=== PATIENT | female | born 1965 | race Caucasian/White ===

== ENCOUNTER 2021-05-11 13:44 | Emergency (ER) | payer BC, SELFPAY ==
--- NOTE | 2021-05-11 13:58 | PC.NURSE ---
[id number]-- registration called name and no response from the waiting room, so pt left without being seen, and chart made from information that was existing in the computer already. pt lwbs.
== END 2021-05-11 13:58 | disposition left against medical advice (07) ==
LOC: EXPCOLL 13:47
DX: Z53.21 Procedure and treatment not carried out due to patient leaving prior to being seen by health care provider (principal)
CPT/HCPCS: 99199

== ENCOUNTER → 2022-07-06 12:06 | Outpatient (CLI) | payer BC, SELFPAY ==
--- NOTE | ~2022-07-06 | XR_ITS ---
Right Hand Technique: PA, oblique, and lateral views were obtained. Clinical History: Osteoarthritis Findings: No acute fracture or dislocation is seen. There is severe osteoarthritis of the fifth PIP j oint, and the fourth and fifth DIP joints. There is mild to moderate degenerative change at the secon d DIP joint. There is probable additional degenerative change at the STT reticulations. Remaining bull nt spaces are intact.. Soft tissues are unremarkable. Impression: Degenerative changes, predominantly involving the interphalangeal joints of the second, fourth, and f ifth digit, as detailed above. Reviewed, dictated and finalized at location M. [facility]PER[facility] Impression: Degenerative changes, predominantly involving the interphalangeal joints of the second, fourth, and fifth digit, as detailed above.
== END ==
PROVIDERS: PCP Family Medicine; Visit Provider Family Medicine
DX: M19.90 Unspecified osteoarthritis, unspecified site (principal)
CPT/HCPCS: 73130

== ENCOUNTER 2022-07-07 01:23 | Day surgery (SDC) | payer BC, SELFPAY ==
[2022-06-27 12:16] VITALS: BMI 31.4
--- NOTE | 2022-07-06 14:20 | PM.HPGS ---
History of Present Illness History of Present Illness Consent: Risks, benefits, and alternatives have been discussed and questions answered. Patient agrees to proceed with procedure. Chief complaint: family hx colon ca, neoplasm screening Narrative: Dorie Cantu (Libby) is a 57 year old female Referred for colon cancer screening. Her father had colon cancer. she had an unremarkable colonoscopy in 2010 Review of Systems Review of Systems: All systems reviewed & are unremarkable except as noted in HPI and below PMFSH Past Medical History Medical History Body mass index [BMI] 30.0-30.9, adult (06/06/17) Breast screening Dietary counseling and surveillance (06/06/17) Mixed hyperlipidemia Vitamin D deficiency Family History Family History Father Carcinoma of colon, Onset Age: 67 Mother Family history of lung cancer, Onset Age: 62 Patient's mother is Social History Social History Social History: Single Smoking status: Never smoker Second hand tobacco smoke exposure: No Alcohol intake: current Drinks per week: 3 Alcohol use details: Occasionally Substance use: never Substance use type: does not use Last use: Sleep aide vape Lack of Transportation: No Lack of Food: Never True Current Housing: I Have Housing Concerned About Future Housing: No Difficulty Paying Gas/Electric Bills: No Difficulty Paying for Meds: No Currently Unemployed: No Education: Don't Know Difficulty w/ Childcare or Family Care: No Living arrangements: with family Occupation/Education: occupation Gender identity (if verbalized by the patient): Female Sexual Orientation (if Verbalized by the Patient): Straight or Heterosexual Spiritual care concerns: No Meds Home Medications and Allergies Home Medications Medication Instructions Recorded Confirmed Type celecoxib 200 mg capsule (Celebrex) 200 mg PO BID #60 caps 07/06/22 07/06/22 Rx Allergies Allergy/AdvReac Type Severity Reaction Status Date / Time No Known Allergies Allergy Verified 07/07/22 07:39 Exam Resp: Auscultation: clear to auscultation bilaterally Cardio: Rate: regular rate Rhythm: regular rhythm GI: GI Palp: Yes Soft to palpation and No Tenderness to palpation present (GI) Assessment and Plan Assessment and plan (1) Colon cancer screening: Code(s): Z12.11 - Encounter for screening for malignant neoplasm of colon Status: Acute Assessment and Plan: Colonoscopy with possible biopsy or polypectomy or cautery or injection of substances.
[2022-07-07 07:41] VITALS: BP 122/73; PULSE 74; RESP 18; TEMP 36.2; O2SAT 100
[2022-07-07] MEDS: LACTATED RINGERS 1,000 ML 150 ML IV CONT (07:49)
--- NOTE | 2022-07-07 08:08 | P.PNAN_ITS ---
Anes - Initial Pre Proc Eval Procedure: Operation Date: 07/07/22 08:30 Proposed Procedures p Screening Colonoscopy - Flako Manuel MD Date/Time: 07/07/22 08:08 Surgeon: Flako Manuel MD Pre Op Diagnosis: family hx colon ca, neoplasm screening Patient Data Age: 57 Gender: F Height: 1.68 m Weight: 92.4 kg Last Vital Signs Temp 97.2 F L 07/07/22 07:41 Pulse 74 07/07/22 07:41 Resp 18 07/07/22 07:41 BP 122/73 07/07/22 07:41 Pulse Ox 100 07/07/22 07:41 O2 Del Method Room Air 07/07/22 07:41 Allergies Allergy/AdvReac Type Severity Reaction Status Date / Time No Known Allergies Allergy Verified 07/07/22 07:39 Home Medications Medication Instructions Recorded Confirmed Type celecoxib 200 mg capsule (Celebrex) 200 mg PO BID #60 caps 07/06/22 07/07/22 Rx Patient hx anesthesia problems: none Family hx anesthesia problems: none Results Review: All pre-operative results and documents have been reviewed as part of the pre- operative evaluation. [facility] Past Medical History Medical History Body mass index [BMI] 30.0-30.9, adult (06/06/17) Breast screening Dietary counseling and surveillance (06/06/17) Mixed hyperlipidemia Vitamin D deficiency Family History Family History Father Carcinoma of colon, Onset Age: 67 Mother Family history of lung cancer, Onset Age: 62 Patient's mother is Social History Social History Social History: Single Smoking status: Never smoker Second hand tobacco smoke exposure: No Alcohol intake: current Drinks per week: 3 Alcohol use details: Occasionally Substance use: never Substance use type: does not use Last use: Sleep aide vape Lack of Transportation: No Lack of Food: Never True Current Housing: I Have Housing Concerned About Future Housing: No Difficulty Paying Gas/Electric Bills: No Difficulty Paying for Meds: No Currently Unemployed: No Education: Don't Know Difficulty w/ Childcare or Family Care: No Living arrangements: with family Occupation/Education: occupation Gender identity (if verbalized by the patient): Female Sexual Orientation (if Verbalized by the Patient): Straight or Heterosexual Spiritual care concerns: No Anes - Eval Final PreProcedure Day of Procedure 07/07/22 08:08 Patient weight: normal and obese Heart: regular rate and rhythm Lungs: clear to auscultation Airway: Mallampati scale class II Neurological: alert and oriented Last oral intake: >/= 8 hours ASA classification: II Emergent: no Anesthetic plan: proceed Anesthesia type and monitoring: general GIVS and standard monitoring Results Review: All pre-operative results and documents have been reviewed as part of the pre- operative evaluation. Informed Consent: The patient's anesthetic plan and its attendant risks and benefits were discussed with the patient/family/POA. Questions were solicited and answers provided to the satisfaction of the patient/family/POA.
[2022-07-07 08:39] VITALS: BP 105/63; PULSE 81; RESP 19; O2SAT 98
--- NOTE | 2022-07-07 08:41 | SUR.OPER ---
sigmoid polyp not retrieved Dr. Manuel notified
[2022-07-07 08:49] VITALS: BP 108/71; PULSE 72; RESP 17; O2SAT 100
[2022-07-07 08:59] VITALS: BP 107/69; PULSE 65; RESP 15; O2SAT 100
== END 2022-07-07 09:09 | disposition home or self-care (01) ==
PROVIDERS: PCP Family Medicine; Visit Provider Internal Medicine Gastroenterology
PROC: 0DJD8ZZ Inspection of Lower Intestinal Tract, Via Natural or Artificial Opening Endoscopic (ICD-10-PCS; CPT 45378; principal; 2022-07-07 08:30)
DX: Z12.11 Encounter for screening for malignant neoplasm of colon (principal); K57.30 Diverticulosis of large intestine without perforation or abscess without bleeding; K63.5 Polyp of colon; Z80.0 Family history of malignant neoplasm of digestive organs; E66.9 Obesity, unspecified; Z68.32 Body mass index [BMI] 32.0-32.9, adult
CPT/HCPCS: 45385; J2704; J7120

== ENCOUNTER 2022-08-22 15:50 | Outpatient (CLI) | payer BC, SELFPAY ==
--- NOTE | ~2022-08-22 | MM_ITS ---
EXAMINATION: MM screening abby BI w [facility] HISTORY: Screening mammogram TECHNIQUE: Craniocaudal and mediolateral oblique 3-D tomosynthesis images were obtained and synthetic 2-D images were generated. CAD analysis was submitted and interpreted. COMPARISON: 07/30/2018 and 06/22/2016 BREAST PARENCHYMAL COMPOSITION:There are scattered areas of fibroglandular density. FINDINGS: No suspicious mass, calcification, or architectural distortion are identified in either harris ast to suggest malignancy. There has been no suspicious interval change. IMPRESSION: No mammographic evidence of malignancy. Recommend routine screening mammography in one year. BI-RADS Category 1: Negative Reviewed, dictated and finalized at location .
== END 2022-08-22 15:51 | disposition home or self-care (01) ==
PROVIDERS: PCP Family Medicine; Visit Provider Family Medicine
DX: Z12.31 Encounter for screening mammogram for malignant neoplasm of breast (principal)
CPT/HCPCS: 77063; 77067